=== PATIENT | female | born 1980 | race Caucasian/White ===

== ENCOUNTER 2020-12-09 22:23 | Outpatient (CLI) | payer OTHER ==
--- NOTE | 2020-12-10 07:23 | Ultrasound Report ---
PROCEDURE: Duplex Ext Veins Left INDICATIONS: UNSPECIFIC INJUIRY TO LEFT LOWER LEG. R/O THROMBOSIS, HEMATOMA. TECHNIQUE: Real-time imaging, as well as color and pulse Doppler interrogation, were performed of the lower extr emity deep veins from the inguinal ligament to the popliteal fossa. COMPARISON: None. FINDINGS: Exam limited secondary to patient body habitus. The deep veins are normally compressible, and free of intraluminal thrombus. Color and pulse Doppler demonstrate normal phasic intraluminal fl ow. There is normal augmentation response to distal compression maneuver. IMPRESSION: No evidence of deep vein thrombosis involving the left lower extremity within limitations of the stud y. Reviewed by: Veronica Nguyen MD, PhD on 12/10/2020 7:21 AM PDT Approved by: Veronica Nguyen MD, PhD on 12/10/2020 7:21 AM PDT Station ID: [id number]
== END 2020-12-09 22:24 | disposition home or self-care (01) ==
LOC: DI 22:23
PROVIDERS: ATTEND Naturopath
DX: S89.92XA Unspecified injury of left lower leg, initial encounter (principal)

== ENCOUNTER 2023-01-18 12:20 | Outpatient (CLI) | payer OTHER ==
--- NOTE | 2023-01-18 13:09 | Ultrasound Report ---
PROCEDURE: Abdomen Limited INDICATIONS: LOWER ABD PAIN TECHNIQUE: Real-time focused scanning was performed of the abdomen, with image documentation. COMPARISONS: None. FINDINGS AND IMPRESSION: The appendix is not seen. No abscess. Reviewed by: Jasper Gaitan MD on 01/18/2023 1:08 PM PDT Approved by: Jasper Gaitan MD on 01/18/2023 1:08 PM PDT Station ID: [id number]
== END 2023-01-18 12:21 | disposition home or self-care (01) ==
LOC: DI 12:20
PROVIDERS: ATTEND Naturopath
DX: R10.30 Lower abdominal pain, unspecified (principal)